=== PATIENT | male | born 1975 | race Two or more races ===

== ENCOUNTER 2025-08-20 12:30 | Emergency (ER) | payer OTHER ==
[~2025-08-20] VITALS: Ht 172.7 cm; Wt 77.1 kg
[2025-08-20 15:45] LABS: BASO % 0.2 % (0.1-1.2); EOS # 0.04 (0.04-0.54); EOS % 0.4 % (0.7-7.0); LYMPH # 1.22 (1.18-3.74); LYMPH % 11.8 % (19.3-53.1); MEAN PLATELET VOLUME 9.10 fl (9.4-12.4); MONO # 0.55 (0.24-0.82); MONO % 5.3 % (4.7-12.5); NEUT # 8.49 (1.56-6.13); NEUT % 82.0 % (34.0-71.1); RED CELL DISTRIBUTION WIDTH 13.1 % (11.6-14.4)
[2025-08-20 16:08] LABS: ALT/SGPT 23.0 U/L (12-78); AST/SGOT 12.0 U/L (15-37); BILIRUBIN TOTAL 0.58 mg/dL (0.3-1.2); BUN CREA RATIO 15.0 (7.0-25.0); CREATININE SERUM 0.94 mg/dL (0.70-1.30); GFR 84.61; GLOBULINA 3.2 G/DL (2.4-3.5); GLUCOSE FASTING 107.0 mg/dL (65-100); OSMOLALITY SERUM 284.0 MOSM/KG (275-295)
[2025-08-20 16:12] LABS: COVID-19 AG NEGATIVE (NEGATIVE)
== END 2025-08-20 19:45 | disposition home or self-care (01) ==
LOC: ER 12:31
PROVIDERS: General Practice
DX: R07.89 Other chest pain (principal); F41.9 Anxiety disorder, unspecified; Z20.822 Contact with and (suspected) exposure to COVID-19; R51.9 Headache, unspecified